=== PATIENT | female | born 1995 | race African-American/Black ===

== ENCOUNTER 2021-03-24 14:03 | Emergency (ER) | payer OTHER, BC, SELFPAY ==
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
[2021-03-24 14:07] VITALS: BP 126/65; PULSE 67; RESP 16; TEMP 36.2; O2SAT 100
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
--- NOTE | 2021-03-24 15:35 | PC.NURSE ---
Pt in xray.
--- NOTE | 2021-03-24 15:46 | PC.NURSE ---
Pt returned to room from xray. No change in pt condition note.
[2021-03-24] MEDS: IBUPROFEN 600 MG TABLET PO (15:50)
[2021-03-24 16:45] VITALS: BP 110/73; PULSE 60; RESP 16; O2SAT 100
== END 2021-03-24 16:44 | disposition home or self-care (01) ==
PROVIDERS: Emergency Provider Nurse Practitioner; PCP Internal Medicine
DX: S39.012A Strain of muscle, fascia and tendon of lower back, initial encounter (principal); S16.1XXA Strain of muscle, fascia and tendon at neck level, initial encounter; S46.912A Strain of unspecified muscle, fascia and tendon at shoulder and upper arm level, left arm, initial encounter; V43.52XA Car driver injured in collision with other type car in traffic accident, initial encounter
CPT/HCPCS: 72040; 72100; 73030; 99283; A9270

== ENCOUNTER 2021-05-31 18:27 | Emergency (ER) | payer BC, SELFPAY ==
[2021-05-31 18:40] VITALS: BP 122/78; PULSE 78; RESP 17; TEMP 36.9; O2SAT 100
--- NOTE | 2021-05-31 19:11 | ED.SKABFB ---
HPI - Skin/Abscess/Foreign Bdy General Chief complaint: Skin/Abscess/Foreign Body Stated complaint: cyst Time Seen by Provider: 05/31/21 18:45 Source: patient Mode of arrival: ambulatory Limitations: no limitations History of Present Illness HPI narrative: Patient is a 25-year-old female who presents complaining of abscess to bikini line x2 days. She denies drainage. She reports a history of abscess with incision and drainage in the past. She denies medical history. Patient does not take medications daily. Patient does not have a primary care doctor. MD complaint: abscess/boil Related Data Home Medications Medication Instructions Recorded Confirmed doxycycline hyclate PO 03/24/21 Allergies Allergy/AdvReac Type Severity Reaction Status Date / Time No Known Allergies Allergy Mild Verified 05/31/21 18:43 Review of Systems Review of Systems: Narrative: CONSTITUTIONAL: Denies fever, chills, or sweats. EYES: Denies visual changes, redness, or discharge. ENT: Denies rhinorrhea, congestion, sore throat, or otalgia. CARDIOVASCULAR: Denies chest pain, palpitations, or edema. RESPIRATORY: Denies cough or dyspnea. GASTROINTESTINAL: Denies abdominal pain, nausea, vomiting, or diarrhea. GENITOURINARY: Denies dysuria or hematuria. SKIN: Reports boil to bikini line MUSCULOSKELETAL: Denies back pain, joint pain, or myalgia. NEUROLOGIC: Denies headache, numbness, dizziness, or weakness. PSYCHIATRIC: Denies anxiety or depression. 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 Please see nursing chart for further information. There is no relevant family history pertinent to the presenting complaint. Exam Narrative: Exam Narrative: GENERAL: Well-appearing, well-nourished, and in no acute distress. HEAD: Normocephalic, atraumatic. EYES: EOMI. No redness or drainage. Conjunctiva are normal. ENT: Mucous membranes pink and moist. Nares clear. No rhinorrhea. TMs normal bilaterally. Throat normal. Uvula midline. NECK: AROM. Supple. No lymphadenopathy. CHEST: No respiratory distress. Clear to auscultation. HEART: Regular rate and rhythm. No murmur appreciated. Normal peripheral pulses. GI: Soft, nontender without rebound, or guarding. No distention. Bowel sounds normal in all quadrants. MUSCULOSKELETAL: No bony tenderness. EXTREMITIES: Normal range of motion. No edema. SKIN: Patient has moderate abscess to the left groin, no drainage noted, tenderness with palpation. NEURO: No focal deficits. Alert and oriented x3. Gait steady. PSYCH: Normal affect. No signs of depression or anxiety. Course Vital Signs Vital signs: Vital Signs Temperature 36.9 C 05/31/21 18:40 Pulse Rate 78 05/31/21 18:40 Respiratory Rate 17 05/31/21 18:40 Blood Pressure 122/78 05/31/21 18:40 Pulse Oximetry 100 05/31/21 18:40 Temperature 36.9 C 05/31/21 18:40 Pulse Rate 78 05/31/21 18:40 Respiratory Rate 17 05/31/21 18:40 Blood Pressure 122/78 05/31/21 18:40 Pulse Oximetry 100 05/31/21 18:40 Reviewed Procedures Abscess I/D other: Date of Inci
== END 2021-05-31 20:17 | disposition home or self-care (01) ==
PROVIDERS: Emergency Provider Nurse Practitioner
DX: L02.214 Cutaneous abscess of groin (principal); L03.314 Cellulitis of groin
CPT/HCPCS: 10060; 99282

== ENCOUNTER 2021-07-11 12:38 | Emergency (ER) | payer OTHER, BC, SELFPAY ==
[2021-07-11 13:15] VITALS: BP 111/65; PULSE 73; RESP 20; TEMP 37.4; O2SAT 100
--- NOTE | 2021-07-11 13:18 | ED.GENADULT ---
HPI - General Adult General Chief complaint: Skin/Abscess/Foreign Body Stated complaint: leg abscess Time Seen by Provider: 07/11/21 13:17 History of Present Illness HPI narrative: Patient is a 25-year-old female otherwise healthy who comes into the ED today complaining of an abscess near her right buttock. Notes that she felt a firm and tender area on her right buttock that started 4 days ago and has gotten progressively larger. She denies any fevers, abdominal pain or any systemic symptoms at all. Says she is feeling fine. Admits to previous history of similar abscesses several times before that frequently require incision and drainage. They are typically in different spots. Related Data Allergies Allergy/AdvReac Type Severity Reaction Status Date / Time No Known Allergies Allergy Mild Verified 07/11/21 13:18 Review of Systems Constitutional: Constitutional: Reports as per HPI, Denies fever(s), Denies night sweats and Denies weakness Cardiovascular: Cardiovascular: Denies chest pain, Denies edema, Denies leg edema, Denies dyspnea and Denies orthopnea Respiratory: Respiratory: Denies cough and Denies dyspnea Gastrointestinal: Gastrointestinal: Denies abdominal pain, Denies constipation, Denies diarrhea, Denies nausea and Denies vomiting Musculoskeletal: Musculoskeletal: Denies abnormal gait, Denies back pain, Denies numbness and Denies tingling Integumentary/Breasts: Comments: See HPI Neurologic: Denies Abnormal speech present, Denies abnormal gait, Denies numbness, Denies tingling and Denies weakness Psychiatric: Psychiatric: Denies homicidal ideation and Denies suicidal ideation [facility] Past Medical History Medical History Hx of drainage of abscess I&D left posterior thigh abscess Surgical History Surgical History History of dental surgery Family History Family History Grandparent Breast cancer Unknown Diabetes mellitus Social History Social History Alcohol intake: current Alcohol use details: Socially Other substance usage details: Marijuana 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 Gender identity (if verbalized by the patient): Female Spiritual care concerns: No Exam Const: General: cooperative, healthy appearing, comfortable, no acute distress, well developed, alert, awake and Physically active Orientation/consciousness: patient oriented x3 HENMT: Head: normal to inspection, normocephalic and atraumatic Ears: external ears normal General nose exam: Normal external nose present Eyes: Pupils: Equal, round and reactive pupils present EOM: EOMs intact bilaterally Neck: Neck: normal visual inspection Chest: Chest palpation & inspection: normal inspection of the chest and no tenderness Resp: Effort & Inspection: normal respiratory effort and able to speak in complete sentences Auscultation: clear to auscultation bilaterally Cardio: Rate: regular rate Rhythm: regular rhythm GI: Inspection: normal to inspection GI Palp: No abdominal tenderness : General: Yes no CVA tenderness Back/Spine/Pelvis: Back: no CVA tenderness Back/spine/pelvis image: 1. Approximately 4 cm in diameter indurated fluctuant tender erythematous area with no surrounding erythema. No drainage. No crepitus. Pain is not out of proportion to exam Skin: General skin exam: normal color and no rashes or lesions noted Lesions: no lesions Neuro: General: patient oriented x3, no focal motor deficits and CN's II-XI intact bilaterally Cranial nerves: Yes Equal, round and reactive pupils present Speech: No Abnormal speech present Extrem: General: normal to inspection and full ROM Psych: Appearance: grossly normal and well kempt Mental Status: mental status grossl
== END 2021-07-11 15:44 | disposition home or self-care (01) ==
PROVIDERS: Emergency Provider Emergency Medicine
DX: L02.31 Cutaneous abscess of buttock (principal)
CPT/HCPCS: 10061; 99283

== ENCOUNTER 2022-01-21 05:41 | Emergency (ER) | payer BC, SELFPAY ==
[2022-01-21 05:49] VITALS: BP 130/86; PULSE 73; RESP 14; TEMP 36.3; O2SAT 100
--- NOTE | 2022-01-21 06:41 | ED.SKABFB ---
HPI - Skin/Abscess/Foreign Bdy General Chief complaint: Skin/Abscess/Foreign Body Stated complaint: abcess on right leg Time Seen by Provider: 01/21/22 05:57 Source: patient Mode of arrival: ambulatory Limitations: no limitations History of Present Illness HPI narrative: This is 26 year old female who presents for evaluation of a right posterior thigh abscess. She noticed a painful abscess yesterday that is located to right posterior thigh. She reports they seem to correlate with her menstrual cycle. HEr last abscess was in same location 6 months ago. She denies fever, drainage, nausea or vomiting. Related Data Allergies Allergy/AdvReac Type Severity Reaction Status Date / Time No Known Allergies Allergy Mild Verified 01/21/22 05:54 Review of Systems Review of Systems: All systems reviewed & are unremarkable except as noted in HPI and below Constitutional: Constitutional: Denies chills, Denies fatigue and Denies fever(s) PMFSH Past Medical History Medical History Hx of drainage of abscess I&D left posterior thigh abscess Surgical History Surgical History History of dental surgery Family History Family History Grandparent Breast cancer Unknown Diabetes mellitus Social History Social History Alcohol intake: current Alcohol use details: Socially Other substance usage details: Marijuana 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 Gender identity (if verbalized by the patient): Female Spiritual care concerns: No Exam Const: General: no acute distress and alert Orientation/consciousness: patient oriented x3 Eyes: EOM: EOMs intact bilaterally Resp: Effort & Inspection: normal respiratory effort Neuro: General: patient oriented x3, moves all extremities and CN's II-XI intact bilaterally Extrem: Other: right posterior thigh with area of fluctuance and tenderness 2.5 x 2 cm, no drainage, no erythema Psych: Mental Status: mental status grossly normal Affect: normal affect Course Reevaluation(s) Reevaluation #1: I Discussed treatment and discharge plan. She denies any additional questions. Date: 01/21/22 Time: 06:44 Vital Signs Vital signs: Vital Signs Temperature 97.4 F L 01/21/22 05:49 Pulse Rate 73 01/21/22 05:49 Respiratory Rate 14 01/21/22 05:49 Blood Pressure 130/86 01/21/22 05:49 Pulse Oximetry 100 01/21/22 05:49 Temperature 97.4 F L 01/21/22 05:49 Pulse Rate 73 01/21/22 05:49 Respiratory Rate 14 01/21/22 05:49 Blood Pressure 130/86 01/21/22 05:49 Pulse Oximetry 100 01/21/22 05:49 Procedures Abscess I/D lower extremity: Date of Incision: 01/21/22 Time of Incision: 06:44 Side (if applicable): right Local Anesthetic: lidocaine 1% and with epi Amount of anesthesia used (mL): 2 Technique: incised with #11 blade Amount of fluid expressed (mL): 5 Irrigation: Yes Packing used?: iodoform I&D Results: Pus Discharge Plan Discharge Clinical Impression: Abscess of thigh Patient Disposition: Home, Self-Care Condition: Stable Instructions: Antibiotic Form, Abscess (ED), Abscess Incision and Drainage (DC) Additional Instructions: Take tylenol and ibuprofen for your pain. You can remove packing in 3 days. If you develop fever, vomiting, enlargement of wound or weakness return to ER. Prescriptions: No Action mupirocin 2 % ointment 1 applic topical BID 7 Days Qty: 15 RF: 0 Follow-up/Referrals: PHYSICIAN,FRAME EXPANDER [Primary Care Provider] - Abel Choi MD [Physician] -
== END 2022-01-21 06:53 | disposition home or self-care (01) ==
PROVIDERS: Emergency Provider General Practice
DX: L02.415 Cutaneous abscess of right lower limb (principal)
CPT/HCPCS: 10061; 99282

== ENCOUNTER 2022-08-03 20:38 | Emergency (ER) | payer BC, SELFPAY ==
[2022-08-03 20:56] VITALS: BP 126/80; PULSE 82; RESP 20; TEMP 36.6; O2SAT 100
== END 2022-08-03 21:27 | disposition left against medical advice (07) ==
LOC: ANHED 21:35
DX: L02.415 Cutaneous abscess of right lower limb (principal)
CPT/HCPCS: 99199

== ENCOUNTER 2022-08-04 08:09 | Emergency (ER) | payer BC, SELFPAY ==
--- NOTE | 2022-08-04 08:13 | ED.SKABFB ---
HPI - Skin/Abscess/Foreign Bdy General Chief complaint: Skin/Abscess/Foreign Body Stated complaint: absess on right leg Time Seen by Provider: 08/04/22 08:13 Source: patient Mode of arrival: ambulatory Limitations: no limitations History of Present Illness HPI narrative: The patient is a 26 yo female with a history of recurrent abscess and skin infection, presenting for evaluation of abscess to posterior right thigh. Patient has a history of these in the past, has required Bactrim, Keflex as well as drainage. Patient denies any history of diabetes, HIV or immunosuppressive state. She denies any recent fall or trauma to the area. Patient denies fever, chills, nausea or vomiting. Patient denies any current drainage from the site. She reports mild swelling, warmth, no significant induration. Patient denies diagnosis of hydradenitis suppurativa. She does not follow with a medical lead. Related Data Allergies Allergy/AdvReac Type Severity Reaction Status Date / Time No Known Allergies Allergy Mild Verified 08/04/22 08:20 Review of Systems Review of Systems: CONSTITUTIONAL: Denies fever CARDIOVASCULAR: Denies chest pain RESPIRATORY: Denies cough or dyspnea. 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 EYES: PERRLA and EOMI. ENT: Nares clear, no rhinorrhea or epistaxis. Mucous membranes moist. NECK: Supple. CHEST: No respiratory distress, breathing even and non labored HEART: Regular rate, sinus rhythm ABDOMEN:Non distended, non tender EXTREMITIES: Normal range of motion. No edema. SKIN: Warm, dry; pt with 1.5 x 2 cm abscess to posterior right thigh, + fluctuant NEURO:No focal deficits. Alert and oriented x3 Course Vital Signs Vital signs: Vital Signs Temperature 36.4 C 08/04/22 08:15 Pulse Rate 76 08/04/22 08:15 Respiratory Rate 18 08/04/22 08:15 Blood Pressure 123/77 08/04/22 08:15 Pulse Oximetry 100 08/04/22 08:15 Oxygen Delivery Room Air 08/04/22 08:15 Temperature 36.4 C 08/04/22 08:15 Pulse Rate 76 08/04/22 08:15 Respiratory Rate 18 08/04/22 08:15 Blood Pressure 123/77 08/04/22 08:15 Pulse Oximetry 100 08/04/22 08:15 Oxygen Delivery Room Air 08/04/22 08:15 Procedures Abscess I/D lower extremity: Date of Incision: 08/04/22 Time of Incision: 10:02 Side (if applicable): right Sedation/analgesia: none Local Anesthetic: lidocaine 1% and with epi Amount of anesthesia used (mL): 5 Technique: incised with #11 blade Amount of fluid expressed (mL): 10 Irrigation: Yes Packing used?: iodoform I&D Results: Pus MDM - Skin/Abscess/Foreign Bdy MDM Narrative Medical decision making narrative: Patient with posterior right thigh abscess without surrounding cellulitis but is quite fluctuant in nature. This was incised and drained and had significant purulence. No significant deep tracking. Given patient's history, signs of abscess, purulence, patient will be placed on ora
[2022-08-04 08:15] VITALS: BP 123/77; PULSE 76; RESP 18; TEMP 36.4; O2SAT 100
== END 2022-08-04 10:21 | disposition home or self-care (01) ==
PROVIDERS: Emergency Provider Emergency Medicine; PCP Internal Medicine
DX: L02.415 Cutaneous abscess of right lower limb (principal)
CPT/HCPCS: 10061; 99283

== ENCOUNTER 2022-12-10 19:16 | Emergency (ER) | payer BC, SELFPAY ==
[2022-12-10 19:17] VITALS: BP 127/72; PULSE 78; RESP 16; TEMP 36.5; O2SAT 99
[2022-12-10] MEDS: LIDO 1%/EPINEPHRINE 1:100,000 20 ML VIAL 5 ML INFILTRATE (20:06)
--- NOTE | 2022-12-10 20:25 | ED.SKABFB ---
HPI - Skin/Abscess/Foreign Bdy General Chief complaint: Skin/Abscess/Foreign Body Stated complaint: abcess Time Seen by Provider: 12/10/22 19:31 History of Present Illness HPI narrative: Patient is a 26-year-old female who presents ER with abscess. Located posterior aspect of the right thigh near the buttock. Swelling over last 3 days. No fevers or chills or sweats. No drainage. Has history of recurrent abscesses and infected cysts. Denies trauma to the area. Reports they worsen when she is under stress. Related Data Allergies Allergy/AdvReac Type Severity Reaction Status Date / Time No Known Allergies Allergy Mild Verified 12/10/22 19:16 Review of Systems Constitutional: Constitutional: Denies chills and Denies fever(s) Musculoskeletal: Musculoskeletal: Denies arthralgias and Denies joint swelling Integumentary/Breasts: Skin/Breast: Denies erythema and Denies rash Comments: Abscess to leg PMFSH Past Medical History Medical History Hx of drainage of abscess I&D left posterior thigh abscess Surgical History Surgical History History of dental surgery Family History Family History Grandparent Breast cancer Unknown Diabetes mellitus Social History Social History Alcohol intake: current Alcohol use details: Socially Other substance usage details: Marijuana 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 HEAD: Normocephalic, atraumatic. CHEST: Clear to auscultation. No respiratory distress. HEART: Regular rate and rhythm. Normal peripheral pulses. EXTREMITIES: Normal range of motion. No edema. SKIN: Warm, dry, no rash. Right posterior thigh near the buttock with abscess that is fluctuant centrally. No cellulitis NEURO: Alert and oriented x3. PSYCH: Normal mood and affect. Course Course Emergency Course: Large amount of purulent material obtained from the cystic abscess. Discharge home with antibiotics and general surgery referral. Vital Signs Vital signs: Vital Signs Temperature 97.7 F 12/10/22 19:17 Pulse Rate 78 12/10/22 19:17 Respiratory Rate 16 12/10/22 19:17 Blood Pressure 127/72 12/10/22 19:17 Pulse Oximetry 99 12/10/22 19:17 Temperature 97.7 F 12/10/22 19:17 Pulse Rate 78 12/10/22 19:17 Respiratory Rate 16 12/10/22 19:17 Blood Pressure 127/72 12/10/22 19:17 Pulse Oximetry 99 12/10/22 19:17 Procedures Abscess I/D lower extremity: Date of Incision: 12/10/22 Time of Incision: 20:15 Side (if applicable): right (buttock/thigh) Local Anesthetic: none (lido 1.5 with epi) Amount of anesthesia used (mL): 3 Technique: incised with #11 blade Irrigation: No Packing used?: plain I&D Results: Pus Discharge Plan Discharge Clinical Impression: Abscess of skin or subcutaneous tissue Patient Disposition: Home, Self-Care Condition: Stable Instructions: Antibiotic Form, Abscess (ED) Additional Instructions: Remove your packing in 2 days. Your abscess was caused by infected cyst. Its recommended you see a general surgeon for potential removal of the cyst. Return the ER if that drainage is worsening, you develop increased redness or warmth around the abscess site, we have fever over 100.4 ?F. Prescriptions: New sulfamethoxazole-trimethoprim [Bactrim DS] 800-160 mg tablet 1 tablet PO Q12H Qty: 14 0RF Follow-up/Referrals: Davidson,MD Td [Primary Care Provider] - 1 Week
== END 2022-12-10 20:37 | disposition home or self-care (01) ==
PROVIDERS: Emergency Provider Emergency Medicine; PCP Internal Medicine
DX: L02.31 Cutaneous abscess of buttock (principal)
CPT/HCPCS: 10061; 99283

== ENCOUNTER 2024-06-09 21:27 | Emergency (ER) | payer BC, SELFPAY ==
[2024-06-09 21:56] VITALS: BP 133/83; PULSE 52; RESP 16; TEMP 36.7; O2SAT 100
--- NOTE | 2024-06-09 23:44 | PC.NURSE ---
Patient not in room when provider went to assess.
== END 2024-06-09 23:44 | disposition left against medical advice (07) ==
PROVIDERS: Emergency Provider Physician Assistant; PCP Internal Medicine
DX: L02.211 Cutaneous abscess of abdominal wall (principal)
CPT/HCPCS: 99199

== ENCOUNTER 2024-07-31 14:34 | Emergency (ER) | payer BC, SELFPAY ==
[2024-07-31 14:38] VITALS: BP 126/76; PULSE 81; RESP 17; TEMP 36.6; O2SAT 100
--- NOTE | 2024-07-31 17:11 | PC.NURSE ---
Pt seen by intake nurse ambulating out of ED w/r w/ a female and walking to her car. Did anyone she was leaving. NAD noted, steady gait.
== END 2024-07-31 17:25 | disposition left against medical advice (07) ==
LOC: ANHED 17:16
PROVIDERS: PCP Internal Medicine
DX: M25.551 Pain in right hip (principal)
CPT/HCPCS: 99199

== ENCOUNTER 2025-03-01 02:46 | Emergency (ER) | payer SELFPAY ==
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
--- OUTSIDE RECORDS SUMMARY | 2025-03-01 02:49 | XMS_ITS | Clinical Summary ---
Author Organization [facility] Address [facility] [place] [address] Care Team Providers Care Mail Distribution Clerk Name Role Phone None, Provider MD Primary Care Provider Unavaila ble Allergies No known active allergies Medications No known medications Social History Tobacco Use Types Packs/Day Years Used Date Smoking Tobacco: Former Cigarettes Smokeless Tobacco: Never Alcohol Use Standard Drinks/Week Comments Yes 0 (1 standard drink = 0.6 oz pur e alcohol) socially Comments No Sex and Gender Information Value Date Recorded Sex Assigned at Not on file Legal Sex Female 1:52 PM PARACHUTE INSPECTOR Gender Identity Not on file Sexual Orientation Not on file Last Filed Vital Signs Vital Sign Reading Time Taken Comments Blood Pressure 121/85 10/19/2020 8:22 AM PARACHUTE INSPECTOR Pulse 98 10/19/2020 8:22 AM PARACHUTE INSPECTOR Temperature 36.4 C (97.6 F) 10/19/2020 8:22 AM PARACHUTE INSPECTOR Respiratory Rate 18 10/19/2020 8:22 AM PARACHUTE INSPECTOR Oxygen Saturation 98% 10/19/2020 8:22 AM PARACHUTE INSPECTOR Inhaled Oxygen Concentration - - Weight 59 kg (130 lb 1.1 oz) 10/19/2020 8:22 AM PARACHUTE INSPECTOR Height 170.2 cm (5' 7 ) 10/19/2020 8:22 AM PARACHUTE INSPECTOR Body Mass Index 20.37 10/19/2020 8:22 AM PARACHUTE INSPECTOR Plan of Treatment Health Maintenance Due Date Last Done Comments Cervical Cancer Screening Pa p Smear (Age 21 to 29) Every 3 Years 1996 Cervical Cancer Screening 1996 Annual Physical 1999 Hepatitis C 2014 DTaP, Tdap and Td Vaccines ( 1 - Tdap) 2015 Hepatitis B Vaccines (1 of 3 - 19+ 3-dose series) 2015 COVID-19 Vaccine (2 - 2023-2 5 season) 2024 03/05/2021 HPV Vaccines Aged Out No longer eligi ble based on patient's age to complete this topic Meningococcal B Vaccine Aged Out No l onger eligible based on patient's age to complete this topic Meningococcal Vaccine Aged Out No essence andres eligible based on patient's age to complete this topic Pneumococcal Vaccine: Pediat rics (0 to 5 Years) and At-Risk Patients (6 to 64 Years) Aged Out No longer eligi ble based on patient's age to complete this topic RSV Immunizations Under 20 Months Aged Out No longer eligible based on patient's age to complete this topic Insurance MEDICAID [place]PT OF [place] [id number] [facility] Care Teams Mail Distribution Clerk Relationship Specialty Start Date End Date None, Provider, PCP - General 09/21/19
--- OUTSIDE RECORDS SUMMARY | 2025-03-01 02:49 | XMS_ITS | Continuity of Care Document ---
Author Organization [facility] Address [address] [place] [address] Phone Care Team Providers Care Coil Repair Technician Name Role Phone Artemio PTKrista Unavailable Unavailabl e Procedures Procedure Date Therapeutic Exercise PT Re-evaluation Therapeutic Activities Hot or Cold Pack Neuromuscular Re-Ed Electrical Stimulation Therapeutic Exercise Manual Therapy Therapeutic Activities Neuromuscular Re-Ed Hot or Cold Pack Electrical Stimulation Therapeutic Activities Manual Therapy Electrical Stimulation Therapeutic Exercise Neuromuscular Re-Ed Hot or Cold Pack Manual Therapy Therapeutic Activities Neuromuscular Re-Ed Hot or Cold Pack Electrical Stimulation Therapeutic Exercise Hot or Cold Pack Manual Therapy Therapeutic Activities Therapeutic Exercise Neuromuscular Re-Ed Electrical Stimulation Therapeutic Exercise Manual Therapy Therapeutic Activities Neuromuscular Re-Ed Hot or Cold Pack Electrical Stimulation Manual Therapy Therapeutic Activities Neuromuscular Re-Ed Therapeutic Exercise Therapeutic Exercise Neuromuscular Re-Ed PT Evaluation Low Complexity Manual Therapy Hot or Cold Pack Electrical Stimulation Advance Directives Directive Yes / No Effective Date File Name No Information Encounters Encounter Description Practice Location Reason(s) For Visit Diagnoses Date Provider Providers Copied on Encounter [facility] [address] [address], [place], [place], [id number], tel:[phone] [place] No Information 1 Ninickohorobby Zaratea. . Referring Provider: [facility]. [facility], [id number], tel:[phone] [place] No Information 1 Ninickohoffer Krista. . Referring Provider: [facility]. [facility] [address], [place], [place], [id number], tel:[phone] [place] No Information 1 Araselihorobby Zaratea. . Referring Provider: [facility]. [facility] [address], [place], [place], [id number], tel:[phone] [place] No Information 1 Niederhoffer Krista. . Referring Provider: [facility]. [facility] [address], [place], [place], [id number], tel:[phone] [place] No Information 1 Niederhoffer Krista. . Referring Provider: [facility]. [facility] [facility] [address], [place], [place], [id number], tel:[phone] [place] No Information 1 Niederhoffer Krista. . Referring Provider: [facility], [place], [place], [id number], tel:[phone] [place] No Information 1 Teofilo العلي. . Referring Provider: [facility], [place], [place], [id number], tel:[phone] [place] No Information 1 Artemio Velasco. . Referring Provider: [facility]. Family History Family Member Type Diagnosis Age At Onset No Information Payers Payer name Insurance type Covered alliance party ID Authorcarmena tibernadine(s) [employer] - PIP Med Pay AM [id number] [place] [employer] [place] 00 Social History Type Description Quantity Date Captured Comments Alcohol Use Details Unknown Caffeine Use Details Unknown Tobacco Use Status Current non-smoker Smoking Status Never smoker Non-Smoking Tobacco Use Details : No Details Available : No Details Available Sex Female Chief Complaint And Reason For Visit No Information Reason For Referral Reason For Referral No Information Plan Of Treatment Date Type Action Status Goal Tobacco Cessation Counseling completed Goal Tobacco cessation counseling completed History Of Present Illness Encounter Date Complaint History Of Prese nt Illness No Information Functional Status Date Functional Assessmen t No Information Instructions Date Instruction Additional Infor mation No Information Assessments Type Assessment Date No Information Patient Care Teams Name Effective Dates (start - stop) Status Members No Information
--- OUTSIDE RECORDS SUMMARY | 2025-03-01 02:49 | XMS_ITS | Referral Summary ---
Author Organization [facility] Address [address] [place] [address] Care Team Providers Care Bushing Press Operator Name Role Phone Jeff Devi MD Primary Care Provider [phone] Allergies No known active allergies Medications sertraline [...] mindfulness 3. Follow up appointment at the [facility] 4. Patients family to find her a [...] mindfulness 3. Follow up appointment at the [facility] 4. Family meeting today to discuss patients [...] mindfulness 3. Follow up appointment at the [facility] 4. Schedule family meeting to discuss patients [...] mindfulness 3. Follow up appointment at the [facility] 4. Schedule family meeting to discuss patients [...] mindfulness 3. Follow up appointment at the [facility] Assessment & Plan (08/28/2018 5:07 PM CDT): [...] Immunization Administration Dates Next Due Tdap 07/12/2022 Social History Tobacco Use Types Packs/Day Years [...] 07/12/2022 1:56 AM CDT Plan of Treatment Not on file Insurance [facility] CHOICE [place] [facility] [place] [id number] [place] [address] MRA [facility] PLAN [facility] [place] [id number] Advance Directives For more information, please contact: [phone] * Full Code (Latest Code Status on File) Date Activated Date Inactivated Comments 08/23/2018 2:30 PM 09/02/2018 3:39 PM * Full Code Date Activated Date Inactivated Comments 08/23/2018 5:50 AM 08/23/2018 2:30 PM Care Teams Bushing Press Operator Relationship Specialty Start Date End Date Jeff Devi MD PCP - General 10/02/20
--- OUTSIDE RECORDS SUMMARY | 2025-03-01 04:37 | XMS_ITS | Clinical Summary ---
Author Organization [facility] Address [address] [place] [address] Care Team Providers Care Paid Internship Name Role Phone Jeff Devi MD Primary Care Provider [phone] Allergies No known active allergies Medications sertraline [...] mindfulness 3. Follow up appointment at the [facility] 4. Patients family to find her [...] mindfulness 3. Follow up appointment at the [facility] 4. Family meeting today to discuss [...] mindfulness 3. Follow up appointment at the [facility] 4. Schedule family meeting to discuss [...] mindfulness 3. Follow up appointment at the [facility] 4. Schedule family meeting to discuss [...] mindfulness 3. Follow up appointment at the [facility] Assessment & Plan (08/28/2018 5:07 PM [...] patient's age to complete this topic Insurance [place] CHOICE PLUS [facility] PLAN [facility] [address] [place] [address] [facility] [address] [address] [place] [address] [facility] [place] [id number] Advance Directives For more information, please contact: [phone] * Full Code (Latest Code Status on File) Date Activated Date Inactivated Comments 08/23/2018 2:30 PM 09/02/2018 3:39 PM * Full Code Date Activated Date Inactivated Comments 08/23/2018 5:50 AM 08/23/2018 2:30 PM Care Teams Paid Internship Relationship Specialty Start Date End Date Jeff Devi MD PCP - General 10/02/20
--- OUTSIDE RECORDS SUMMARY | 2025-03-01 04:37 | XMS_ITS | Referral Summary ---
Author Organization [facility] Address [address] [place] [address] Care Team Providers Care Butcher Chicken And Fish Name Role Phone Jeff Devi MD Primary Care Provider [phone] Allergies No known active allergies Medications sertraline [...] mindfulness 3. Follow up appointment at the [facility] 4. Patients family to find her [...] mindfulness 3. Follow up appointment at the [facility] 4. Family meeting today to discuss [...] mindfulness 3. Follow up appointment at the [facility] 4. Schedule family meeting to discuss [...] mindfulness 3. Follow up appointment at the [facility] 4. Schedule family meeting to discuss [...] mindfulness 3. Follow up appointment at the [facility] Assessment & Plan (08/28/2018 5:07 PM [...] Plan of Treatment Not on file Insurance [facility]PPO Address: [facility] [address] [place] [address] [facility] [place] [address] [place] [address] MRA [facility]AN [facility] [place] [id number] Advance Directives For more information, please contact: [phone] * Full Code (Latest Code Status on File) Date Activated Date Inactivated Comments 08/23/2018 2:30 PM 09/02/2018 3:39 PM * Full Code Date Activated Date Inactivated Comments 08/23/2018 5:50 AM 08/23/2018 2:30 PM Care Teams Butcher Chicken And Fish Relationship Specialty Start Date End Date Jeff Devi MD PCP - General 10/02/20
--- OUTSIDE RECORDS SUMMARY | 2025-03-01 04:37 | XMS_ITS | Continuity of Care Document ---
Author Organization [facility] Address [address] [place] [address] Phone Care Team Providers Care Restaurant Front Manager Name Role Phone Artemio PT, Krista Unavailable Unavailabl e Procedures Procedure Date Therapeutic Exercise Electrical Stimulation Neuromuscular Re-Ed PT Re-evaluation Therapeutic Activities Hot or Cold Pack Therapeutic Activities Manual Therapy Therapeutic Exercise Neuromuscular Re-Ed Hot or Cold Pack Electrical Stimulation Therapeutic Activities Hot or Cold Pack Neuromuscular Re-Ed Electrical Stimulation Therapeutic Exercise Manual Therapy Therapeutic Activities Manual Therapy Therapeutic Exercise Electrical Stimulation Neuromuscular Re-Ed Hot or Cold Pack Manual Therapy Therapeutic Activities Therapeutic Exercise Hot or Cold Pack Neuromuscular Re-Ed Electrical Stimulation Neuromuscular Re-Ed Therapeutic Exercise Manual Therapy Therapeutic Activities Hot or Cold Pack Electrical Stimulation Neuromuscular Re-Ed Therapeutic Activities Manual Therapy Therapeutic Exercise PT Evaluation Low Complexity Neuromuscular Re-Ed Therapeutic Exercise Manual Therapy Electrical Stimulation Hot or Cold Pack Advance Directives Directive Yes / No Effective Date File Name No Information Encounters Encounter Description Practice Location Reason(s) For Visit Diagnoses Date Provider Providers Copied on Encounter [facility] [address] [address], [place], [place], [id number], tel:[phone] [place] No Information 1 Ninickohorobby Zaratea. . Referring Provider: Access Direct. [facility] [address], [place], [place], [id number], tel:[phone] [place] No Information 1 Ninickohoffer Krista. . Referring Provider: Access Direct. [facility] [address], [place], [place], [id number], tel:[phone] [place] No Information 1 Araselihorobby Zaratea. . Referring Provider: Access Direct. [facility] [address], [place], [place], [id number], tel:[phone] [place] No Information 1 Niederhoffer Krista. . Referring Provider: Access Direct. [facility] [address], [place], [place], [id number], tel:[phone] [place] No Information 1 Niederhoffer Krista. . Referring Provider: Access Direct. [facility] [address], [place], [place], [id number], tel:[phone] [place] No Information 1 Niederhoffer Krista. . Referring Provider: [facility] [facility], [place], [place], [id number], tel:[phone] [place] No Information 1 Teofilo العلي. . Referring Provider: [facility], [place], [place], [id number], tel:[phone] [place] No Information 1 Artemio Velasco. . Referring Provider: Access Direct. Family History Family Member Type Diagnosis Age At Onset No Information Payers Payer name Insurance type Covered republican ID Authorcarmena tibernadine(s) [employer] - PIP Med Pay AM [id number] [facility] Law [place] 00 Social History Type Description [...]
--- OUTSIDE RECORDS SUMMARY | 2025-03-01 04:37 | XMS_ITS | Clinical Summary ---
Author Organization [facility] Address [facility] [place] [address] Care Team Providers Care Yard Pilot Name Role Phone None, Provider MD Primary [...] on file Legal Sex Female 1:52 PM CORPORATE REAL ESTATE SPECIALIST Gender Identity Not on file Sexual Orientation Not on file Last Filed Vital Signs Vital Sign Reading Time Taken Comments Blood Pressure 121/85 10/19/2020 8:22 AM CORPORATE REAL ESTATE SPECIALIST Pulse 98 10/19/2020 8:22 AM CORPORATE REAL ESTATE SPECIALIST Temperature 36.4 C (97.6 F) 10/19/2020 8:22 AM CORPORATE REAL ESTATE SPECIALIST Respiratory Rate 18 10/19/2020 8:22 AM CORPORATE REAL ESTATE SPECIALIST Oxygen Saturation 98% 10/19/2020 8:22 AM CORPORATE REAL ESTATE SPECIALIST Inhaled Oxygen Concentration - - Weight 59 kg (130 lb 1.1 oz) 10/19/2020 8:22 AM CORPORATE REAL ESTATE SPECIALIST Height 170.2 cm (5' 7 ) 10/19/2020 8:22 AM CORPORATE REAL ESTATE SPECIALIST Body Mass Index 20.37 10/19/2020 8:22 AM CORPORATE REAL ESTATE SPECIALIST Plan of Treatment Health Maintenance Due Date [...] complete this topic Insurance MEDICAID [place] [id number] [facility] Care Teams Yard Pilot Relationship Specialty Start Date End Date None, Provider, PCP - General 09/21/19
[2025-03-01] MEDS: KETOROLAC 30 MG/ML VIAL (*BKC) IM (04:51)
--- NOTE | 2025-03-01 04:51 | ED_ITS ---
HPI - Skin/Abscess/Foreign Bdy General Chief complaint: Skin/Abscess/Foreign Body Stated complaint: Abscess on back of leg Time Seen by Provider: 03/01/25 03:57 Source: patient Mode of arrival: ambulatory Limitations: no limitations History of Present Illness HPI narrative: This is a 29-year-old female, with no significant past medical history who presents to the emergency department complaining of abscess on the posterior aspect of her right leg for the past day. She complains of dull moderate to severe pain aggravated by direct touch. The patient states she has had abscesses drained previously. She complains of some chills but denies fevers, nausea, vomiting, loss of sensation/strength in the leg. She has no other complaints at this time. Related Data Allergies Allergy/AdvReac Type Severity Reaction Status Date / Time No Known Allergies Allergy Mild Verified 12/10/22 19:16 Review of Systems Review of Systems: All systems reviewed & are unremarkable except as noted in HPI and below PMFSH Past Medical History Medical History Hx of drainage of abscess I&D left posterior thigh abscess Surgical History Surgical History History of dental surgery Family History Family History Grandparent Breast cancer Unknown Diabetes mellitus Social History Social History Alcohol intake: current Alcohol use details: Socially Other substance usage details: Marijuana Living arrangements: alone Occupation/Education: occupation 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 HEAD: Normocephalic, atraumatic. EYES: PERRLA and EOMI. CHEST: Clear to auscultation. No respiratory distress. No wheezes rales or rhonchi HEART: Regular rate and rhythm. No murmur heard. Normal peripheral pulses. EXTREMITIES: Normal range of motion. No edema. SKIN: There is a 5 cm diameter lesion on the posterior aspect of the right thigh with fluctuance, tenderness and induration consistent with an abscess. Skin otherwise warm, dry, no rash. NEURO: Alert and oriented x3. No focal deficit. Moving all 4 limbs spontaneously PSYCH: Normal mood and affect. Course Course Emergency Course: 04:50 - The patient's abscess was strained and packed. Please see procedure note. Will discharge with oral antibiotics and recommendation for Sitz baths and primary care follow-up for packing removal and wound re-evaluation. I discussed the findings and recommendations with the patient. Discussed return and emergency precautions including signs/symptoms of spreading leg infection and neurovascular compromise. The patient voiced understanding and agreement with the plan. All questions answered to her satisfaction. Procedures Abscess I/D lower extremity: Date of Incision: 03/01/25 Time of Incision: 04:31 Side (if applicable): right Sedation/analgesia: none Local Anesthetic: lidocaine 1% and with epi Amount of anesthesia used (mL): 7 Technique: incised with #11 blade Amount of fluid expressed (mL): 50 Irrigation: Yes Packing used?: plain I&D Results: Pus and Blood Complications: pain MDM - Skin/Abscess/Foreign Bdy MDM Narrative Medical decision making narrative: Plan: Pain control, incision and drainage, reassess Differential Diagnosis Differential diagnosis: Likely abscess of skin or subcutaneous tissue and other (Cyst, other) Discharge Plan Discharge Clinical Impression: Acute pain of right thigh Abscess of skin or subcutaneous tissue Qualifiers: Site of cutaneous abscess: extremity Site of cutaneous abscess of extremity: lower extremity Laterality: right Qualified Code(s): L02.415 - Cutaneous abscess of right lower limb Patient Disposition: Home Condition: Stable Instructions: Antibiotic Form, Abscess (ED) Additional Instructions: You were seen in the emergency department. An abscess on the right thigh was drained and packed. I recommend a course of oral antibiotics and follow-up with your primary care doctor for packing removal. I recommend Sitz baths. If you develop rapidly spreading redness with increasing pain and fever of the leg appears blue/cold, or if you have other emergent concerns for life, limb, or eyesight, return to the emergency department. Patient Language: [place] Prescriptions: New clindamycin HCl [Cleocin HCl] 150 mg capsule 450 mg PO Q8H 7 Days Qty: 63 0RF hydrocodone-acetaminophen 5-325 mg tablet 1 tablet PO Q8H PRN (Reason: pain, severe) Qty: 6 0RF Follow-up/Referrals: Davidson,MD Td [Primary Care Provider] - 1 Week Time of Disposition: 04:51
[2025-03-01 04:58] VITALS: BP 131/83; PULSE 75; RESP 14; O2SAT 100
== END 2025-03-01 05:00 | disposition home or self-care (01) ==
PROVIDERS: Emergency Provider Preventive Medicine Aerospace Medicine; PCP Internal Medicine
DX: L02.415 Cutaneous abscess of right lower limb (principal)
CPT/HCPCS: 10061; 96372; 99283; J1885